=== PATIENT | male | born 1980 | race Caucasian/White ===

== ENCOUNTER 2020-11-13 13:55 | Emergency (ER) | payer OTHER, SELFPAY ==
--- OUTSIDE RECORDS SUMMARY | 2020-11-13 13:58 | XMS REPORT | Continuity of Care Document ---
:1980 Author Organization [facility] t Address [address] [place] [address] Care Team Providers Name Role Phone Unavailable Unavailable Unavailable Payers Payer Name Policy Type Policy Number Effective Date Expiration Date S ource Problems This patient has no known problems. Allergies, Adverse Reactions, Alerts Allergy Allergy Status Severity Reaction(s) Onset Inactive Treating Comm ents Source Name Type Date Date Clinician No Known DA Active [facility] Medications This patient has no known medications. Procedures This patient has no known procedures. Results Test Description Test Time Test Comments Results Result Comments Source Urine Culture 2019-05-04 C Urine Added by No growth at 24 06:13:40 [id number] hours. No growth at 48 hours. RPR Qualitative 2019-05-03 13:09:31 Test Item Value Reference Range Interpretation Comme nts RPR Qual (test code = RPR Qual) Non-Reactive Non-Reactive Reactive Control (test code = Reactive Control) Reactive Weak Reactive Control (test code = Weak Reactive Weak Reactive Control) Non-Reactive Control (test code = Non-Reactive Non-Reactive Control) Lot # (test code = Lot #) [id number] Expiration Dt (test code = Expiration Dt) 02-02-2020 N Thyroid Stimulating [id number] 08:06:45 Test Item Value Reference Range Interpretation Comments TSH (test code = TSH) 1.540 mIU/mL 0.270-4.200 Lipid [id number] 07:41:52 Test Item Value Reference Range Interpretation Comments Cholesterol Total 197 mg/dL 0-200 RISK OF HE ART (test code = DISEASEPublishe d by Cholesterol Total) [employer] Cheryl lyte Optimal Borderl ine Increased RiskC HOL <200 200-239 >2 40TRIG <150 150-199 >2 00HDL Male >60 <40H DL Female >60 <5 0LDL <100 130-159 >1 60LDL Near optimal is 100-129 Triglycerides (test 95 mg/dL 9-200 code = Triglycerides) HDL (test code = HDL) 43 mg/dL 40-60 LDL (test code = LDL) 135 mg/dL 0-130 H The eq uation being used in this calcula tion is LDL = (Chol - H DL) - (Trig / 5) VLDL (test code = 19 mg/dL 5-40 The equati on being used VLDL) in this calcula tion is VLDL = Trig / 5 Chol/HDL (test code = 4.6 ratio 0.0-5.0 Chol/HDL) LDL/HDL Ratio (test 3 N The equa tion being used code = LDL/HDL Ratio) in thi s calculation is LDL/HDL Ratio=L DL Calc/HDL Chol Urine Drug [id number] 17:28:08 Test Item Value Reference Range Interpretation Comments Amphetamine Screen Ur POSITIVE Negative A (test code = Amphetamine Screen Ur) Barbiturate Screen Ur Negative Negative (test code = Barbiturate Screen Ur) Benzodiazepines Ur (test Negative Negative code = Benzodiazepines Ur) Cocaine Screen Ur (test Negative Negative code = Cocaine Screen Ur) U Methadone Scr (test Negative Negative code = U Methadone Scr) Opiate Screen Ur (test Negative Negative code = Opiate Screen Ur) U PCP Scrn (test code = Negative Negative U PCP Scrn) Cannabinoid Screen Ur Negative Negative (test code = Cannabinoid Screen Ur) U TCA (test code = U Negative Negative The res ults of all TCA) drug screen kristopher ts are only preliminar y. Clinical consideration a nd professional ju dgment should be appli ed to any drug of abu se test result, particularly wh en preliminary pos itive results are obt ained. Please order a separate confir matory test if desired . Urinalysis [id number] 16:55:55 Test Item Value Reference Range Interpretation Comments UA WBC (test code = UA WBC) 6-10 0-5 A UA RBC (test code = UA RBC) 0-5 0-5 UA Bacteria (test code = UA Bacteria) Few A UA Mucous (test code = UA Mucous) Many A Urinalysis with Culture, if [id number] 16:08:12 Test Item Value Reference Range Interpretation Comments UA Color (test code = YELLO Yellow UA Color) UA Appear (test code = CLEAR Clear UA Appear) UA pH (test code = UA 7 N pH) UA Spec Grav (test code 1.027 1.001-1.035 = UA Spec Grav) UA Glucose (test code = NEG Negative UA Glucose) UA Bili (test code = UA 1 mg/dL Negative A Bili) UA Ketones (test code = 150 mg/dL Negative A UA Ketones) UA Blood (test code = NEG Negative UA Blood) UA Protein (test code = 25 mg/dL Negative A UA Protein) UA Urobilinogen (test 0.2 mg/dL N code = UA Urobilinogen) UA Nitrite (test code = NEG Negative UA Nitrite) UA Leuk Est (test code 25 cells/mcL Negative A = UA Leuk Est) UA Micro Ind? (test Indicated Not Indicated A Result created by code = UA Micro Ind?) rule [id number] _IN D Comprehensive Metabolic [id number] 14:29:30 Test Item Value Reference Range Interpretation Comments Sodium Level (test 140.0 mmol/L 135.0-145.0 code = Sodium Level) Potassium Level 4.2 mmol/L 3.5-5.1 (test code = Potassium Level) Chloride Level (test 98 mmol/L 98-105 code = Chloride Level) CO2 (test code = 25 mmol/L 22-29 CO2) Anion Gap (test code 17 mmol/L 7-16 H = Anion Gap) BUN (test code = 15.00 mg/dL 6.00-20.00 BUN) Creatinine Level 0.80 mg/dL 0.70-1.20 (test code = Creatinine Level) BUN/Creat Ratio 19 N (test code = BUN/Creat Ratio) Glucose Level (test 95 mg/dL 70-115 code = Glucose Level) Calcium Level (test 10.3 mg/dL 8.3-10.5 code = Calcium Level) Alk Phos (test code 84 U/L 40-129 = Alk Phos) Bilirubin Total 1.0 mg/dL 0.1-0.9 H (test code = Bilirubin Total) Albumin Level (test 5.1 g/dL 3.5-5.2 code = Albumin Level) Protein Total (test 8.0 g/dL 6.4-8.3 code = Protein Total) ALT (test code = 19 U/L 1-41 ALT) AST (test code = 17 U/L 1-40 AST) Globulin (test code 2.9 g/dL 2.9-3.1 = Globulin) A/G Ratio (test code 1.8 ratio N = A/G Ratio) eGFR AA (test code = >60 N eGFR (e stimated eGFR AA) mL/min/1.73 m2 Glomerular Filtration Rate ) is an estimated va lue, calculated from the patient's serum creatinine usin g the MDRD equation. It is NOT the patient 's actual GFR. The eGFR provides a more clinically usef ul measure of kidn ey disease than se rum creatinine alone.This calculation rukhsana es sex and race in to account, if the information is provided. If th e race is not provided, and t he patient is -Luciana n, multiply by 1.2 12. If sex is not provided, and t he patient is fema le, multiply by 0.7 42. Results for pat ients <18 years of ag e have not been validated by th e MDRD study and should be interpreted wit h caution. eGFR R esult Interpretation: eGFR > or = 60 is in the Normal RangeeGF R < 60 may mean kid john diseaseeGFR < 1 5 may mean kidney failure Rang es recommended by the National Kidney Foundation, http://nkdep.ni h.gov Comprehensive Metabolic [id number] 14:29:30 Test Item Value Reference Range Interpretation Comments Sodium Level (test 140.0 mmol/L 135.0-145.0 code = Sodium Level) Potassium Level 4.2 mmol/L 3.5-5.1 (test code = Potassium Level) Chloride Level (test 98 mmol/L 98-105 code = Chloride Level) CO2 (test code = 25 mmol/L 22-29 CO2) Anion Gap (test code 17 mmol/L 7-16 H = Anion Gap) BUN (test code = 15.00 mg/dL 6.00-20.00 BUN) Creatinine Level 0.80 mg/dL 0.70-1.20 (test code = Creatinine Level) BUN/Creat Ratio 19 N (test code = BUN/Creat Ratio) Glucose Level (test 95 mg/dL 70-115 code = Glucose Level) Calcium Level (test 10.3 mg/dL 8.3-10.5 code = Calcium Level) Alk Phos (test code 84 U/L 40-129 = Alk Phos) Bilirubin Total 1.0 mg/dL 0.1-0.9 H (test code = Bilirubin Total) Albumin Level (test 5.1 g/dL 3.5-5.2 code = Albumin Level) Protein Total (test 8.0 g/dL 6.4-8.3 code = Protein Total) ALT (test code = 19 U/L 1-41 ALT) AST (test code = 17 U/L 1-40 AST) Globulin (test code 2.9 g/dL 2.9-3.1 = Globulin) A/G Ratio (test code 1.8 ratio N = A/G Ratio) eGFR AA (test code = >60 N eGFR (e stimated eGFR AA) mL/min/1.73 m2 Glomerular Filtration Rate ) is an estimated va lue, calculated from the patient's serum creatinine usin g the MDRD equation. It is NOT the patient 's actual GFR. The eGFR provides a more clinically usef ul measure of kidn ey disease than se rum creatinine alone.This calculation rukhsana es sex and race in to account, if the information is provided. If th e race is not provided, and t he patient is -Luciana n, multiply by 1.2 12. If sex is not provided, and t he patient is fema le, multiply by 0.7 42. Results for pat ients <18 years of ag e have not been validated by th e MDRD study and should be interpreted wit h caution. eGFR R esult Interpretation: eGFR > or = 60 is in the Normal RangeeGF R < 60 may mean kid john diseaseeGFR < 1 5 may mean kidney failure Rang es recommended by the National Kidney Foundation, http://nkdep.ni h.gov eGFR Non-AA (test >60.00 N eGFR (yeny mated code = eGFR Non-AA) mL/min/1.73 m2 Glomer ular Filtration Rate ) is an estimated va lue, calculated from the patient's serum creatinine usin g the MDRD equation. It is NOT the patient 's actual GFR. The eGFR provides a more clinically usef ul measure of kidn ey disease than se rum creatinine alone.This calculation rukhsana es sex and race in to account, if the information is provided. If th e race is not provided, and t he patient is -Luciana n, multiply by 1.2 12. If sex is not provided, and t he patient is fema le, multiply by 0.7 42. Results for pat ients <18 years of ag e have not been validated by th e MDRD study and should be interpreted wit h caution. eGFR R esult Interpretation: eGFR > or = 60 is in the Normal RangeeGF R < 60 may mean kid john diseaseeGFR < 1 5 may mean kidney failure Rang es recommended by the National Kidney Foundation, http://nkdep.ni h.gov Alcohol [id number] 14:29:30 Test Item Value Reference Range Interpretation Comments Ethanol Level (test <0.00 g/dL 0.00-0.01 Intoxica karley 0.080 g/dL code = Ethanol or more Level) Ethanol Inst (test <0 N code = Ethanol Inst) Comprehensive Metabolic [id number] 14:29:30 Test Item Value Reference Range Interpretation Comments Sodium Level (test 140.0 mmol/L 135.0-145.0 code = Sodium Level) Potassium Level 4.2 mmol/L 3.5-5.1 (test code = Potassium Level) Chloride Level (test 98 mmol/L 98-105 code = Chloride Level) CO2 (test code = 25 mmol/L 22-29 CO2) Anion Gap (test code 17 mmol/L 7-16 H = Anion Gap) BUN (test code = 15.00 mg/dL 6.00-20.00 BUN) Creatinine Level 0.80 mg/dL 0.70-1.20 (test code = Creatinine Level) BUN/Creat Ratio 19 N (test code = BUN/Creat Ratio) Glucose Level (test 95 mg/dL 70-115 code = Glucose Level) Calcium Level (test 10.3 mg/dL 8.3-10.5 code = Calcium Level) Alk Phos (test code 84 U/L 40-129 = Alk Phos) Bilirubin Total 1.0 mg/dL 0.1-0.9 H (test code = Bilirubin Total) Albumin Level (test 5.1 g/dL 3.5-5.2 code = Albumin Level) Protein Total (test 8.0 g/dL 6.4-8.3 code = Protein Total) ALT (test code = 19 U/L 1-41 ALT) AST (test code = 17 U/L 1-40 AST) Globulin (test code 2.9 g/dL 2.9-3.1 = Globulin) A/G Ratio (test code 1.8 ratio N = A/G Ratio) eGFR AA (test code = >60 N eGFR (e stimated eGFR AA) mL/min/1.73 m2 Glomerular Filtration Rate ) is an estimated va lue, calculated from the patient's serum creatinine usin g the MDRD equation. It is NOT the patient 's actual GFR. The eGFR provides a more clinically usef ul measure of kidn ey disease than se rum creatinine alone.This calculation rukhsana es sex and race in to account, if the information is provided. If th e race is not provided, and t he patient is -Luciana n, multiply by 1.2 12. If sex is not provided, and t he patient is fema le, multiply by 0.7 42. Results for pat ients <18 years of ag e have not been validated by th e MDRD study and should be interpreted wit h caution. eGFR R esult Interpretation: eGFR > or = 60 is in the Normal RangeeGF R < 60 may mean kid john diseaseeGFR < 1 5 may mean kidney failure Rang es recommended by the National Kidney Foundation, http://nkdep.ni h.gov eGFR Non-AA (test >60.00 N eGFR (yeny mated code = eGFR Non-AA) mL/min/1.73 m2 Glomer ular Filtration Rate ) is an estimated va lue, calculated from the patient's serum creatinine usin g the MDRD equation. It is NOT the patient 's actual GFR. The eGFR provides a more clinically usef ul measure of kidn ey disease than se rum creatinine alone.This calculation rukhsana es sex and race in to account, if the information is provided. If th e race is not provided, and t he patient is -Luciana n, multiply by 1.2 12. If sex is not provided, and t he patient is fema le, multiply by 0.7 42. Results for pat ients <18 years of ag e have not been validated by th e MDRD study and should be interpreted wit h caution. eGFR R esult Interpretation: eGFR > or = 60 is in the Normal RangeeGF R < 60 may mean kid john diseaseeGFR < 1 5 may mean kidney failure Rang es recommended by the National Kidney Foundation, http://nkdep.ni h.gov Automated [id number] 14:17:02 Test Item Value Reference Range Interpretation Comments Neutro Auto (test code = Neutro 70.2 % 36.0-70.0 H Auto) Lymph Auto (test code = Lymph Auto) 19.2 % 12.0-44.0 [place] Auto (test code = [place] Auto) 9.8 % 0.0-11.0 Eos, Auto (test code = Eos, Auto) 0.1 % 0.0-7.0 Basophil Auto (test code = Basophil 0.4 % 0.0-2.0 Auto) Neutro Absolute (test code = Neutro 5.5 x10 1.6-7.4 Absolute) Lymph Absolute (test code = Lymph 1.50 x10 .50-4.60 Absolute) [place] Absolute (test code = [place] .77 x10 .00-1.20 Absolute) Eos Absolute (test code = Eos 0.01 x10 0.00-0.74 Absolute) Baso Absolute (test code = Baso 0.03 x10 0.00-0.21 Absolute) IG [id number] 14:17:02 Test Item Value Reference Range Interpretation Comments IG (test code = IG) 0.3 % 0.0-5.0 IG Abs (test code = IG Abs) 0 x10 N Complete Blood Count with [id number] 14:17:01 Test Item Value Reference Range Interpretation Comments WBC (test code = WBC) 7.8 x10 4.4-10.5 RBC (test code = RBC) 5.00 x10 4.10-5.70 Hgb (test code = Hgb) 15.9 g/dL 13.4-17.4 MCV (test code = MCV) 94.40 fL 80.00-100.00 Hct (test code = Hct) 47.2 % 38.7-52.0 MCHC (test code = 33.70 g/dL 32.00-37.50 MCHC) MCH (test code = MCH) 31.8 pg 27.0-32.5 RDW CV (test code = 12.8 % 11.5-14.5 RDW CV) Platelets (test code = 255.0 x10 140.0-440.0 Platelets) MPV (test code = MPV) 11.1 fL N Slide Review (test Auto Auto Result cr eated by code = Slide Review) GL_SJM_ SLIDE_REV_AUTO nRBC (test code = 0 N nRBC) NRBC Abs (test code = 0.00 x10 N NRBC Abs) IPF (test code = IPF) 0 % N
[2020-11-13 15:55] LABS: Barbiturates NEGATIVE (NEGATIVE); Benzodiazepines NEGATIVE (NEGATIVE); Cocaine NEGATIVE (NEGATIVE); METHAMPHETAM NEGATIVE (NEGATIVE); Methadone NEGATIVE (NEGATIVE); Opiates NEGATIVE (NEGATIVE); Phencyclidine NEGATIVE (NEGATIVE); THC Cannibis NEGATIVE (NEGATIVE)
[2020-11-13 16:26] LABS: Absolute Lymphocytes (CBC) 1.6 K/uL (0.7-4.9); Basophils % 0.6 % (0-1.3); Hematocrit 46.6 % (39.6-49.0); Lymphocytes % 26.7 % (15.3-44.8); MPV 9.3 fL (7.6-11.3); RBC Red Blood Cell Count 5.03 M/uL (4.33-5.43)
[2020-11-13 16:30] LABS: Protime INR 1.13
[2020-11-13] MEDS ORDERED: LORazepam 2 MG/ML VIAL ONE (16:32)
[2020-11-13 16:39] LABS: ALT/SGPT 17 U/L (12-78); AST/SGOT 11 U/L (15-37); Albumin 4.1 g/dL (3.4-5.0); Alkaline Phosphatase 91 U/L (45-117); BUN Blood Urea Nitrogen 10 mg/dL (7-18); Bicarbonate 24 mmol/L (21-32); Bilirubin Direct 0.2 mg/dL (0-0.2); Bilirubin Total 0.8 mg/dL (0.2-1.0); Glucose Level 84 mg/dL (74-106); Potassium 3.7 mmol/L (3.5-5.1); Protein, Total 7.7 g/dL (6.4-8.2); Sodium Level 140 mmol/L (136-145)
--- NOTE | 2020-11-13 16:52 | RAD REPORT ---
EXAM DESCRIPTION: CT - Head Brain Wo Cont - 11/13/2020 4:35 pm CLINICAL HISTORY: auditory hallucinations;Headache COMPARISON: <Comparisons> TECHNIQUE: Axial 5 mm thick images of the head were obtained without IV contrast. All CT scans are performed using dose optimization technique as appropriate and may include automated exposure control or mA/KV adjustment according to patient size. FINDINGS: No intracranial hemorrhage, mass, edema or shift of mid-line structures. No acute infarcti on changes seen. No abnormal extra-axial fluid collections. Ventricles are normal. Right-side mastoid air cells are clear. Left-sided mastoid air cells are mostly opacified which match es the 2009 study. No acute paranasal sinus finding. No acute bony findings. IMPRESSION: Negative non-contrast CT head examination for acute finding No significant change from the remote 2009 study.
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
--- NOTE | 2020-11-13 17:08 | ER ---
Nurse's Notes [facility] Name: Fritz Moore Age: 40 yrs Sex: Male : 1980 Arrival Date: 11/13/2020 Time: 13:56 Bed 19 Private MD: Diagnosis: Schizoaffective disorder, unspecified;Anxiety disorder, unspecified;Auditory hallucinations Presentation: 11/13 14:23 Chief complaint: Patient states: "My head is always screwy and yesterday I was trying ss to read and it was like woooooo, like there is something in there and I have anxiety real bad." PT reports he has been having visual and auditory hallucinations. HX of schizophrenia. Pt reports he has been without medication in the past few months and is trying to get on disability to get help. Coronavirus screen: Client denies travel out of the [place] in the last 14 days. Ebola Screen: Patient denies exposure to infectious person. Patient denies travel to an Ebola-affected area in the 21 days before illness onset. Initial Sepsis Screen: Does the patient meet any 2 criteria? No. Patient's initial sepsis screen is negative. Does the patient have a suspected source of infection? No. Patient's initial sepsis screen is negative. Risk Assessment: Do you want to hurt yourself or someone else? Patient reports no desire to harm self or others. Onset of symptoms is unknown. 14:23 Method Of Arrival: Ambulatory ss 14:23 Acuity: ARGENIS 2 ss Historical: - Allergies: 14:27 No Known Allergies; ss - Home Meds: 14:27 None [Active]; ss - PMHx: 14:27 Depressive disorder; Anxiety; Schizophrenia; ss - Immunization history:: Adult Immunizations unknown, Client reports having NOT received the Covid vaccine. - Social history:: Smoking status: Patient reports the use of cigarette tobacco products, denies chronic smoking, but will smoke occasionally, Patient/guardian denies using. Screenin:30 Abuse screen: Denies threats or abuse. Nutritional screening: No deficits noted. rb3 Tuberculosis screening: No symptoms or risk factors identified. Fall Risk None identified. Assessment: 15:30 General: Appears unkempt, Behavior is anxious. Pain: Denies pain. Neuro: Level of rb3 Consciousness is obeys commands, Reports hearing Berny Crougar's voice. His verbal hallucinations are telling him to burn his house down with his family in it. He is also seeing visual hallucinations.. Oriented to person, place. Cardiovascular: Patient's skin is warm and dry. Respiratory: Airway is patent Respiratory effort is even, unlabored, Respiratory pattern is regular, symmetrical. GI: No signs and/or symptoms were reported involving the gastrointestinal system. : No signs and/or symptoms were reported regarding the genitourinary system. 15:30 Musculoskeletal: Range of motion: intact in all extremities. rb3 16:30 Reassessment: Patient appears in no apparent distress at this time. No changes from rb3 previously documented assessment. 17:30 Reassessment: Patient appears in no apparent distress at this time. Patient and/or rb3 family updated on plan of care and expected duration. Pain level reassessed. Patient is alert, oriented x 3, equal unlabored respirations, skin warm/dry/pink. 18:30 Reassessment: Patient appears in no apparent distress at this time. Pt is resting with rb3 eyes closed, respirations even, unlabored. 18:45 Reassessment: Pt belongings were sent to security. Paper copy of belongings list is on rb3 the patient's chart. 23:12 Reassessment: Patient appears in no apparent distress at this time. No changes from ms4 previously documented assessment. Patient and/or family updated on plan of care and expected duration. Pain level reassessed. patient resting in bed, no acute distress noted. patient in direct visualization of nurses station. 11/14 01:15 Reassessment: Patient appears in no apparent distress at this time. No changes from ms4 previously documented assessment. Patient and/or family updated on plan of care and expected duration. Pain level reassessed. patient sleeping at this time. patient in direct view of nurses station. 03:37 Reassessment: Patient appears in no apparent distress at this time. No changes from ms4 previously documented assessment. 06:40 Reassessment: Patient appears in no apparent distress at this time. No changes from ms4 previously documented assessment. Patient and/or family updated on plan of care and expected duration. Pain level reassessed. patient IV removed. patient states his voices are gone but he is still experiencing suicidal thoughts. denies plan or intent at this time. awaiting acceptance from religion at this time. 19:00 Reassessment: Patient and/or family updated on plan of care and expected duration. Pain fu level reassessed. Patient is alert, oriented x 3, equal unlabored respirations, skin warm/dry/pink. patient verbalizes suicidal and homicidal ideations at this time. 11/15 04:20 Reassessment: Patient asleep in bed not in respiratory distress. fu 07:00 Reassessment: RECD REPORT FROM MICHAEL TEMPLETON. 40YO WM P/W PSYCH DISTURBANCE. XFER BEING bp ATTEMPTED. 12:30 Reassessment: PT EATING LUNCH NO CHANGE IN TRANSFER STATUS. bp 13:30 Reassessment: PT EXHIBITING DYSKINESIA. MEDICATED AND S/S RESOLVED. bp 17:30 Reassessment: No changes from previously documented assessment. PT EATING DINNER, NO bp CHANGE IN TRANSFER STATUS. 20:00 Reassessment: Patient appears in no apparent distress at this time. Patient resting, lp1 eyes closed, respirations even, unlabored. 23:48 Reassessment: Patient given sandwich and juice at this time; appears calm, cooperative. lp1 11/16 09:00 Reassessment: Patient appears in no apparent distress at this time. Patient and/or ae4 family updated on plan of care and expected duration. Pain level reassessed. General: Appears in no apparent distress. comfortable. Neuro: Level of Consciousness is awake, alert, obeys commands, Oriented to person, place. Respiratory: Airway is patent Respiratory effort is even, unlabored, Respiratory pattern is regular, symmetrical. 09:15 Reassessment: Patient appears in no apparent distress at this time. Patient and/or ae4 family updated on plan of care and expected duration. Pain level reassessed. Patient ambulated to bathroom unassisted with steady gait. 10:15 Reassessment: Patient appears in no apparent distress at this time. Patient and/or ae4 family updated on plan of care and expected duration. Pain level reassessed. Patient is alert, oriented x 3, equal unlabored respirations, skin warm/dry/pink. 12:00 Reassessment: Patient appears in no apparent distress at this time. No changes from ae4 previously documented assessment. 13:45 Reassessment: Patient appears in no apparent distress at this time. No changes from ae4 previously documented assessment. Patient and/or family updated on plan of care and expected duration. Pain level reassessed. 16:51 Reassessment: Patient states he is twitching and cannot make it stop. Provider ae4 notified, new orders received. 17:55 Reassessment: Patient states the twitching has returned and he is unable to chew his ae4 food. Provider notified, new orders received. 17:59 Reassessment: Patient states he will still hold off on the tylenol for now. Patient ae4 ambulated to bathroom with steady gait. 20:00 Reassessment: Patient appears in no apparent distress at this time. Patient resting, lp1 eyes closed, respirations even, unlabored. 11/17 00:00 Reassessment: Patient resting, eyes closed, respirations even, unlabored; appears with lp1 no further needs. 04:55 Reassessment: Patient denies any need for snacks this morning, declines anything to lp1 drink at this time; room care performed. 07:00 General: Appears unkempt, Behavior is calm, cooperative, appropriate for age. Pain: ll1 Denies pain. 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 Full function Gait is steady, Speech is normal, Facial symmetry appears normal, Reports SI. Cardiovascular: No deficits noted. Respiratory: No deficits noted. GI: No deficits noted. 08:00 Reassessment: No changes from previously documented assessment. Patient and/or family ll1 updated on plan of care and expected duration. Pain level reassessed. Patient is alert, oriented x 3, equal unlabored respirations, skin warm/dry/pink. 09:00 Reassessment: No changes from previously documented assessment. Patient and/or family ll1 updated on plan of care and expected duration. Pain level reassessed. Patient is alert, oriented x 3, equal unlabored respirations, skin warm/dry/pink. 10:00 Reassessment: No changes from previously documented assessment. Patient and/or family ll1 updated on plan of care and expected duration. Pain level reassessed. Patient is alert, oriented x 3, equal unlabored respirations, skin warm/dry/pink. 11:00 Reassessment: No changes from previously documented assessment. Patient and/or family ll1 updated on plan of care and expected duration. Pain level reassessed. Patient is alert, oriented x 3, equal unlabored respirations, skin warm/dry/pink. 12:00 Reassessment: No changes from previously documented assessment. Patient and/or family ll1 updated on plan of care and expected duration. Pain level reassessed. Patient is alert, oriented x 3, equal unlabored respirations, skin warm/dry/pink. 13:00 Reassessment: No changes from previously documented assessment. Patient and/or family ll1 updated on plan of care and expected duration. Pain level reassessed. Patient is alert, oriented x 3, equal unlabored respirations, skin warm/dry/pink. 14:00 Reassessment: No changes from previously documented assessment. Patient and/or family ll1 updated on plan of care and expected duration. Pain level reassessed. Patient is alert, oriented x 3, equal unlabored respirations, skin warm/dry/pink. 15:00 Reassessment: No changes from previously documented assessment. Patient and/or family ll1 updated on plan of care and expected duration. Pain level reassessed. Patient is alert, oriented x 3, equal unlabored respirations, skin warm/dry/pink. 16:00 Reassessment: No changes from previously documented assessment. Patient and/or family ll1 updated on plan of care and expected duration. Pain level reassessed. Patient is alert, oriented x 3, equal unlabored respirations, skin warm/dry/pink. 17:00 Reassessment: No changes from previously documented assessment. Patient and/or family ll1 updated on plan of care and expected duration. Pain level reassessed. Patient is alert, oriented x 3, equal unlabored respirations, skin warm/dry/pink. 18:00 Reassessment: No changes from previously documented assessment. Patient and/or family ll1 updated on plan of care and expected duration. Pain level reassessed. Patient is alert, oriented x 3, equal unlabored respirations, skin warm/dry/pink. Psych: 11/13 15:30 [place] Suicide Severity Screening: In the past month, have you wished you were rb3 or wished you could go to sleep and not wake up? Patient responds "yes." Based off the client's responses additional C-SSRS screening is required. "In the past month, have you actually had any thoughts of killing yourself?" Patient responds "yes." "In your lifetime, have you ever done anything, started to do anything, or prepared to do anything to end your life?" Patient responds "yes." Has a history of mental illness. Reports that he is not worth being alive, but he does not have an actual plan to hurt himself or others. Subjective: Patient's mood is hopeless, Delusions are jew, Hallucinations are auditory, visual, Having thoughts of suicide. Denies suicidal plan. Objective: Patient is cooperative, Speech is normal, Affect is flat. Interventions: Removed personal items and placed in bag. Patient placed in hospital gown. Searched person for dangerous items. Urine collected and sent for urine drug test. Belonging list filled out. Safety Checks: Personal items have been removed. Door is open. No visitors are present at this time. Pt denies substance abuse Pt reports he has not been on his medications for months. Vital Signs: 14:27 BP 108 / 87; Pulse 116; Resp 16; Temp 98.8(TE); Pulse Ox 97% on R/A; Pain 0/10; ss 23:12 BP 107 / 71; Pulse 61; Resp 18; Temp 98.4; Pulse Ox 98% ; Pain 0/10; ms4 11/14 08:00 BP 110 / 68; Pulse 76; Resp 17; Temp 97.9(O); Pulse Ox 98% on R/A; Pain 1/10; ap3 19:52 BP 119 / 82; Pulse 89; Resp 16; Temp 98(O); Pulse Ox 97% on R/A; Pain 0/10; fu 11/15 11:00 BP 105 / 72; Pulse 100; Resp 17; Temp 98.3; bp 23:44 BP 96 / 69; Pulse 60; Resp 16; Temp 98.5; Pulse Ox 95% on R/A; lp1 11/16 07:59 BP 108 / 64; Pulse 72; Resp 16; Temp 97.2(TE); Pulse Ox 98% on R/A; mh5 10:24 BP 99 / 64; Pulse 70; Resp 17; Pulse Ox 98% on R/A; mh5 11/17 04:53 BP 122 / 87; Pulse 59; Resp 16; Temp 97.9(O); Pulse Ox 98% on R/A; lp1 18:02 BP 111 / 61; Pulse 80; Resp 16; Temp 98.0; Pulse Ox 98% ; Pain 0/10; ll1 ED Course: 11/13 13:56 Patient arrived in ED. as 14:26 Triage completed. ss 14:27 Arm band placed on right wrist. ss 14:55 Nena Verduzco, RN is Primary Nurse. rb3 15:10 Srinivasa Gilbert PA is PHCP. cp 15:10 Donavon Castro MD is Attending Physician. cp 15:30 Patient has correct armband on for positive identification. Placed in gown. Bed in low rb3 position. Patient is placed in psych hold. 15:55 Missed attempt(s): 20 gauge in right forearm. Bleeding controlled, band aid applied, rb3 catheter tip intact. 15:59 Inserted saline lock: 22 gauge in right forearm, using aseptic technique. Blood rb3 collected. 16:36 CT Head Brain wo Cont In Process Unspecified. EDMS 17:17 pt clinical information faxed to [facility], [facility], [facility] and [facility] in an attempt to secure transfer. 19:00 Safety Checks: Other: See patients chart for safety checks. rb3 19:00 Patient is placed in psych hold. rb3 11/14 01:21 Faxed pt chart to [facility], [facility] [address] [facility], and [facility]. 05:56 Initiated transfer at [facility] with Pamela. Requested the [facility] Exclusionary be tt3 fillied out and faxed with pt clinicals and demographics to . Informed Janee Mcrae RN, Primary Nurse and she is working on the exclusionary. 06:36 faxed patient records to [facility] at [phone]. eb 06:42 No provider procedures requiring assistance completed. IV discontinued, intact, ms4 bleeding controlled, No redness/swelling at site. 11/16 08:00 Warm blanket given. Pillow given. mh5 13:29 role handed off by Kamilla Garcia, JARETH eb 20:23 faxed patient clinicals to all available psych facilities. mw2 11/17 00:03 [facility] called they put patient on the [facility] Wait list. mw2 07:22 Primary Nurse role handed off by Nena Verduzco, RN ll1 07:22 Nava Marks RN is Primary Nurse. ll1 19:30 Primary Nurse role handed off by Nava Marks RN [facility] 19:45 Attending Physician role handed off by Donavon Castro MD shawna 19:45 Srinivasa Matt MD is Attending Physician. [facility] 19:53 Carlos Badillo MD is Referral Physician. [facility] Administered Medications: 11/13 16:14 Drug: Ativan (LORazepam) 1 mg Route: IVP; Site: right forearm; rb3 16:40 Follow up: Response: No adverse reaction; Anxiety unchanged rb3 17:19 Drug: HALdol (as decanoate) 10 mg Route: IM; Site: right gluteus; rb3 18:00 Follow up: Response: No adverse reaction; Anxiety decreased rb3 11/14 10:57 Drug: Ativan (LORazepam) 1 mg Route: PO; ap3 13:12 Follow up: Response: No adverse reaction ap3 13:43 Drug: HALdol (as decanoate) 10 mg Route: IM; Site: right gluteus; ap3 18:08 Follow up: Response: No adverse reaction ap3 18:56 Drug: Ativan (LORazepam) 1 mg Route: PO; ap3 19:23 Follow up: Response: No adverse reaction ap3 11/15 10:15 Drug: HALdol (as decanoate) 10 mg Route: IM; Site: right gluteus; bp 17:37 Follow up: Response: No adverse reaction bp 10:15 Drug: Ativan (LORazepam) 1 mg Route: PO; bp 17:38 Follow up: Response: No adverse reaction bp 13:30 Drug: diphenhydrAMINE 25 mg Route: IM; Site: right gluteus; bp 17:38 Follow up: Response: Marked relief of symptoms bp 11/16 08:28 Drug: Benadryl (diphenhydrAMINE) 25 mg Route: PO; ss 16:25 Follow up: Response: RASS: Alert and Calm (0) ae4 10:00 Drug: Cogentin (benztropine) 1 mg Route: IM; Site: right gluteus; ae4 16:25 Follow up: Response: No adverse reaction; Other ae4 10:10 Drug: HALdol (as decanoate) 10 mg Route: IM; Site: right gluteus; ae4 11:00 Follow up: Response: RASS: Light sedation (-2) ae4 10:17 CANCELLED (Route changed per providerr): COgentin (benztropine) 1 mg IVP once ae4 16:48 Drug: Benadryl (diphenhydrAMINE) 25 mg Route: IM; Site: right deltoid; ae4 11/17 13:31 Follow up: Response: No adverse reaction ll1 11/16 17:55 Drug: Ativan (LORazepam) 1 mg Route: IM; Site: left deltoid; ae4 11/17 13:31 Follow up: Response: No adverse reaction ll1 09:26 Drug: Cogentin (benztropine) 1 mg Route: IM; Site: right gluteus; ll1 13:31 Follow up: Response: No adverse reaction ll1 09:26 Drug: HALdol (as decanoate) 10 mg Route: IM; Site: right gluteus; ll1 13:31 Follow up: Response: No adverse reaction ll1 13:15 Drug: Ativan (LORazepam) 1 mg Route: PO; ll1 17:20 Follow up: Response: No adverse reaction ll1 20:00 Drug: Cogentin (benztropine) 2 mg Route: IM; Site: right deltoid; ld1 20:33 Not Given (Other Intervention Used): RisperDAL (risperiDONE) 2 mg PO once ld1 Outcome: 11/13 17:07 ER care complete, transfer ordered by MD. clark 11/17 19:54 Discharge ordered by MD. matos 20:34 Discharged to home ambulatory. ld1 20:34 Condition: stable 20:34 Discharge instructions given to patient, Instructed on discharge instructions, follow up and referral plans. medication usage, Demonstrated understanding of instructions, follow-up care, medications. 20:34 Patient left the ED. ld1 Signatures: Dispatcher [employer] EDMS Srinivasa Matt MD MD cha Martinez, Amelia as Martinez, Eric em1 Clari Horn RN RN ss Kamilla Garcia RN RN lp1 Srinivasa Gilbert, Kemi Kamara cp [facility] Michael Chatterjee RN RN fu Peltier, Brian, RN RN bp Prokisch, Amanda, RN RN ap3 Williams Flood mw2 Katy Harper Andrea RN RN ae4 Nava Marks, RN RN ll1 Favio Maddox tt3 Nena Verduzco, RN RN rb3 Yvonne Salas, RN RN ld1 Janee Mcrae RN RN ms4 Corrections: (The following items were deleted from the chart) 11/13 14:27 14:27 PSHx: None; ss ss 16:37 16:14 CORONAVIRUS+MR.LAB.ROSALVA drawn and sent. rb3 EDMS 19:21 17:30 Reassessment: Patient appears in no apparent distress at this time. Patient rb3 and/or family updated on plan of care and expected duration. Pain level reassessed. Patient is alert, oriented x 3, equal unlabored respirations, skin warm/dry/pink. rb3 11/15 06:11 08 19:00 Reassessment: Patient and/or family updated on plan of care and expected fu duration. Pain level reassessed. Patient is alert, oriented x 3, equal unlabored respirations, skin warm/dry/pink. patient denies suicidal and homicidal ideations at this time fu 11/16 16:30 16:26 Reassessment: Patient appears in no apparent distress at this time. Patient ae4 and/or family updated on plan of care and expected duration. Pain level reassessed. ae4 16:30 16:26 General: Appears in no apparent distress. comfortable, ae4 ae4 16:30 16:26 Neuro: Level of Consciousness is awake, alert, obeys commands, Oriented to ae4 person, place, ae4 16:30 16:26 Respiratory: Airway is patent Respiratory effort is even, unlabored, Respiratory ae4 pattern is regular, symmetrical, ae4
[2020-11-13] MEDS ORDERED: HALOPERIDOL LACT 5 MG/ML INJ ONE (17:35)
[2020-11-14] MEDS ORDERED: LORAZEPAM 1 MG TABLET ONE ×2 (11:18→18:51)
[2020-11-14] MEDS ORDERED: HALOPERIDOL LACT 5 MG/ML INJ ONE (14:00)
[2020-11-15] MEDS ORDERED: LORAZEPAM 1 MG TABLET ONE (10:44)
[2020-11-15] MEDS ORDERED: HALOPERIDOL LACT 5 MG/ML INJ ONE (10:44)
[2020-11-15] MEDS ORDERED: DIPHENHYDRAMINE 50 MG/ML VIAL ONE (14:14)
[2020-11-16] MEDS ORDERED: DIPHENHYDRAMINE 25 MG TAB/CAP ONE (08:49)
[2020-11-16] MEDS ORDERED: HALOPERIDOL LACT 5 MG/ML INJ ONE (09:59)
[2020-11-16] MEDS ORDERED: BENZTROPINE 2 MG/2 ML VIAL ONE (10:23)
[2020-11-16] MEDS ORDERED: DIPHENHYDRAMINE 50 MG/ML VIAL ONE (17:10)
[2020-11-16] MEDS ORDERED: LORazepam 2 MG/ML VIAL ONE (18:13)
[2020-11-16] MEDS ORDERED: ACETAMINOPHEN 500 MG TAB ONE (18:13)
[2020-11-17] MEDS ORDERED: BENZTROPINE 2 MG/2 ML VIAL ONE ×2 (09:32→20:27)
[2020-11-17] MEDS ORDERED: HALOPERIDOL LACT 5 MG/ML INJ ONE (09:32)
[2020-11-17] MEDS ORDERED: LORAZEPAM 1 MG TABLET ONE (13:27)
[2020-11-17 20:56] VITALS: O2SAT 98
[2020-11-17 21:02] VITALS: BP 111/61; TEMP 98
== END 2020-11-17 20:34 | disposition home or self-care (01) ==
LOC: ER 13:55
DX: F25.9 Schizoaffective disorder, unspecified (principal); F41.9 Anxiety disorder, unspecified; F17.210 Nicotine dependence, cigarettes, uncomplicated; Z20.822 Contact with and (suspected) exposure to COVID-19
CPT/HCPCS: 36415; 70450; 80048; 80076; 80307; 80320; 80329; 85025; 85610; 85730; 93005; 96372; 96374; 99285; J0515; J1630; U0003